=== PATIENT | male | born 1990 | race Two or more races ===

== ENCOUNTER 2023-11-28 19:34 | Emergency (ER) | payer MEDICAID ==
[~2023-11-28] VITALS: Ht 177.8 cm; Wt 78.0 kg
[2023-11-28 20:07] VITALS: O2SAT 100
[2023-11-28] MEDS ORDERED: SALI7GEL TP (22:58)
[2023-11-28 23:13] VITALS: BP 133/79; PULSE 50; RESP 16; TEMP 99
== END 2023-11-28 23:19 | disposition home or self-care (01) ==
LOC: ER 19:34
DX: B07.0 Plantar wart (principal)
CPT/HCPCS: 73630; 99283